=== PATIENT | male | born 1985 | race Caucasian/White ===

== ENCOUNTER 2025-03-02 09:36 | Emergency (ER) | payer OTHER, SELFPAY ==
[2025-03-02 09:46] VITALS: BP 140/95; PULSE 71; RESP 14; TEMP 36.2; O2SAT 99; BMI 32.6
--- NOTE | 2025-03-02 09:52 | DI.RAD.S_ITS ---
PROCEDURE: XR FINGER RT MIN 2V INDICATIONS: fish hook in finger TECHNIQUE: AP hand, 2 views of the 2nd finger(s) acquired. COMPARISON: None. FINDINGS: Bones: No fractures or dislocations. No suspicious bony lesions. Soft tissues: No suspicious soft tissue calcifications. [place], level of distal phalanx of 2nd finger. IMPRESSION: [place] foreign body. No acute bony abnormality. Dictated by: Jaciel Sheets M.D. on 03/02/2025 at 10:42 Approved by: Jaciel Sheets M.D. on 03/02/2025 at 10:44
--- NOTE | 2025-03-02 09:55 | PC.NURSE ---
Pt has a fish hook in tip of right index finger
[2025-03-02] MEDS: TET,DIPH,PERTUSS(ACELL),VAC/PF 0.5 ML SYRINGE IM (10:00)
--- NOTE | 2025-03-02 10:09 | ED.SKABFB ---
HPI - Skin/Abscess/Foreign Bdy General Chief complaint: Skin/Abscess/Foreign Body Stated complaint: Fishing stuck in R index finger Time Seen by Provider: 03/02/25 09:56 Source: patient Mode of arrival: Ambulatory Limitations: no limitations History of Present Illness HPI narrative: Patient is a 32-year-old male without any significant past medical history comes into the ED from home for evaluation of a fishhook stuck in his right index finger, states that he was fishing just prior to arrival and got a fishhook stuck to his finger, not up-to-date on his tetanus denies any other injuries not on any blood thinners Related Data Previous Rx's ?Medication ?Instructions ?Recorded cephalexin 500 mg capsule 500 mg PO Q6H 5 days #20 caps 03/02/25 Allergies Allergy/AdvReac Type Severity Reaction Status Date / Time No Known Drug Allergies Allergy Verified 03/02/25 09:45 Review of Systems Review of Systems Narrative: General: Denies fever, chills, weight loss HEENT: Denies headache, eye drainage, eye irritation, head trauma, sore throat, voice change Cardiovascular: Denies any chest pain, palpitations, tachycardia Respiratory: Denies any shortness of breath, cough, wheeze, stridor GI/: Denies any abdominal pain, nausea, vomiting, diarrhea, bright red blood per rectum, melanotic stools, urinary frequency, urinary retention, dysuria, hematuria MSK: [place] stuck to index finger right hand Skin: Denies any rashes, lesions, discoloration Neuro: Denies any headache, lightheadedness, dizziness, fainting, weakness Psych: Denies SI/HI Patient History Social History Smoking Status: Unknown if ever smoked Smoking Status: Unknown if ever smoked Exam Narrative Exam Narrative: General: Cooperative, well-developed, not in acute distress HEENT: Normocephalic, atraumatic, PERRLA, normal sclera, eyelids normal Neck: Active full range of motion, atraumatic Chest: Normal to inspection, negative crepitus, no overlying erythema ecchymosis Respiratory: Normal respiratory effort, not in acute respiratory distress, clear to auscultation bilaterally negative cough, wheeze, tachypnea, rhonchi, rales Cardiology: Regular rate rhythm negative gallop, murmur, rubs GI/: No tenderness to palpation, soft, non rigid, normal to inspection, exam deferred MSK: Patient with a fishhook stuck to the palmar aspect of the right index finger Skin: No rashes or lesions noted Neuro: Alert awake oriented x3, moves all 4 extremities spontaneously, cranial nerves intact, able to answer all questions appropriately follows commands appropriately Psych: Cooperative, negative suicidal or homicidal ideations Initial Vital Signs Initial Vital Signs: Vital Signs Temperature 97.2 F L 03/02/25 09:46 Pulse Rate 71 03/02/25 09:46 Respiratory Rate 14 03/02/25 09:46 Blood Pressure 140/95 H 03/02/25 09:46 Pulse Oximetry 99 03/02/25 09:46 Oxygen Delivery Method Room Air 03/02/25 09:46 Course Orders Ordered: ED Orders 03/02/25 09:52 XR finger RT min 2V Stat Discontinued Medications Diphtheria/Tetanus/Acell Pertussis (Tet,Diph,Pertuss(Acell),Vac/Pf 0.5 Ml Syringe) 0.5 ml IM .ONCE ONE Stop: 03/02/25 09:53 Last Admin: 03/02/25 10:00 Dose: 0.5 ml Documented By: CTS Vital Signs Vital signs: Vital Signs - 8 hr 03/02/25 09:46 Temperature 97.2 F L Pulse Rate 71 Respiratory Rate 14 Blood Pressure 140/95 H Pulse Oximetry 99 Oxygen Delivery Method Room Air MDM - Skin/Abscess/Foreign Bdy Differential Diagnosis Differential diagnosis: Likely other (Laceration, foreign body, avulsion) Imaging Data Extremity x-ray #1: My Impression: [place] noted to the right index finger does not appear to have any bony abnormality MDM Narrative Medical decision making narrative: Patient is a 40-year-old male without any significant past medical history presenting for fishhook stuck to the palmar aspect of his right index finger, states it has happened just prior to arrival. Not up-to-date on tetanus. Patient had the foreign body removed after local injection of lidocaine, patient was placed in compressive dressing to the right index finger, was neurovascularly intact after the foreign body was removed. She will be started prophylactically on antibiotics for cellulitis. Patient was given strict return precautions he verbalized understanding of this and agrees to being discharged home with outpatient follow up Discharge Plan Departure Patient Disposition: Home Clinical Impression: [place] injury to finger Activity Restrictions/Additional Instructions: Please follow up with your primary care doctor as needed Please read the discharge instructions sheet carefully and bring all papers to all doctor follow-up visits, as it may contain information that your doctor may want to see. Disease processes change and evolve, if your symptoms worsen or if you develop any new symptoms that are concerning to you please return for evaluation. Your evaluation today does not show any evidence of any life-threatening/serious illnesses requiring admission to the hospital or surgery. Please follow-up with your doctor for re-evaluation in approximately 1 day. Seek immediate medical attention for any worrisome symptoms. *If you do not have a primary care provider please contact the [facility] Resource line at [phone]. They will ask some questions about your medical history and help get you set up with a doctor in the community. Prescriptions: New cephalexin 500 mg capsule 500 mg PO Q6H 5 Days Qty: 20 0RF Stand Alone Forms: Patient Portal/API
[2025-03-02 10:50] VITALS: BP 132/77; PULSE 86; RESP 18; TEMP 36.7; O2SAT 99
== END 2025-03-02 10:51 | disposition home or self-care (01) ==
PROVIDERS: Emergency Provider Student in an Organized Health Care Education/Training Program
DX: S69.91XA Unspecified injury of right wrist, hand and finger(s), initial encounter (principal); Z23 Encounter for immunization
CPT/HCPCS: 73140; 90471; 99283; 90715